=== PATIENT | male | born 1955 | race Caucasian/White ===

== ENCOUNTER 2018-03-13 08:58 | Inpatient (IN) | payer BC ==
[~2018-03-13] VITALS: Ht 167.6 cm; Wt 81.7 kg
[~2018-03-13 08:58] MED LIST: PRED20 PO; Synthroid125 MCG
[2018-03-13] MEDS ORDERED: PRED1 PO (09:20)
[2018-03-13 09:44] LABS: BASOPHILS ABSOLUTE AUTO 0.07 K/mm3 (0.00-0.23); BASOPHILS PERCENT AUTO 0 % (0-2); EOSINOPHILS ABSOLUTE AUTO 0.17 K/mm3 (0.00-0.68); EOSINOPHILS PERCENT AUTO 1 % (0-6); Hematocrit 50.9 % (37.0-53.0); Hemoglobin 16.9 g/dL (13.5-17.5); IMMATURE GRAN ABSOLUTE AUTO 0.07 K/mm3 (0.00-0.10); IMMATURE GRAN PERCENT AUTO 0 % (0-1); LYMPHOCYTES ABSOLUTE AUTO 4.45 K/mm3 (0.84-5.20); LYMPHOCYTES PERCENT AUTO 25 % (21-46); MONOCYTES ABSOLUTE AUTO 1.58 K/mm3 (0.16-1.47); MONOCYTES PERCENT AUTO 9 % (4-13); Mean Corpuscular HGB 29.5 pg (26.0-34.0); Mean Corpuscular HGB Conc 33.2 g/dL (31.5-36.5); Mean Corpuscular Volume 89 fL (80-100); Mean Platelet Volume 10.3 fL (9.1-12.4); NEUTROPHILS ABSOLUTE AUTO 11.33 K/mm3 (1.96-9.15); NEUTROPHILS PERCENT AUTO 64 % (41-73); Platelet Count 280 K/mm3 (150-400); RDW Coefficient Variation 13.3 % (11.7-14.2); RDW Standard Deviation 43.2 fL (35.1-46.3); Red Blood Cell Count 5.72 M/mm3 (4.30-5.90); White Blood Cell Count 17.67 K/mm3 (4.00-11.30)
[2018-03-13 10:06] LABS: Albumin, Blood 4.1 g/dL (3.4-5.0); Albumin/Globulin Ratio 0.9 (0.8-1.8); Bun/Creatinine Ratio 16.4 (12.0-20.0); Calcium, Blood 9.9 mg/dL (8.5-10.1); Creatinine, Blood 1.34 mg/dL (0.60-1.20); Globulin, Blood 4.4 g/dL (2.2-4.0); Total Protein, Blood 8.5 g/dL (6.4-8.2)
[2018-03-13] MEDS ORDERED: LEVSOD125 PO (12:24)
[2018-03-13] MEDS ORDERED: HYDR1TAB94 PO (18:32)
== END 2018-03-13 19:16 | disposition home or self-care (01) | DRG 354 ==
LOC: ER 08:58 → SURS 11:12
PROVIDERS: Emergency Medicine; Surgery
PROC: 0WUF0JZ Supplement Abdominal Wall with Synthetic Substitute, Open Approach (ICD-10-PCS; principal; 2018-03-13 12:45)
DX: K43.9 Ventral hernia without obstruction or gangrene (principal); K56.609 Unspecified intestinal obstruction, unspecified as to partial versus complete obstruction; E03.9 Hypothyroidism, unspecified; Z85.820 Personal history of malignant melanoma of skin; D72.829 Elevated white blood cell count, unspecified
CPT/HCPCS: 36415; 74177; 80053; 83605; 83690; 84484; 85025; 93005; 93010; 96361; 96374; 96375; 96376; 99285; C1781; J0330; J0697; J1720; J2250; J2370; J2405; J2710; J3010; J7030; J7120; Q9967

== ENCOUNTER 2020-06-08 04:51 | Inpatient (IN) | payer BC, MEDICARE ==
[~2020-06-08] VITALS: Ht 170.2 cm; Wt 85.0 kg
[~2020-06-08 04:51] MED LIST changes: +HYDR1TAB94 PO; +LEVSOD125 PO; +PRED1 PO
[2020-06-08 05:27] LABS: BASOPHILS ABSOLUTE AUTO 0.07 K/mm3 (0.00-0.23); BASOPHILS PERCENT AUTO 1 % (0-2); EOSINOPHILS ABSOLUTE AUTO 0.18 K/mm3 (0.00-0.68); EOSINOPHILS PERCENT AUTO 1 % (0-6); Hematocrit 47.8 % (37.0-53.0); Hemoglobin 15.6 g/dL (13.5-17.5); IMMATURE GRAN ABSOLUTE AUTO 0.03 K/mm3 (0.00-0.10); IMMATURE GRAN PERCENT AUTO 0 % (0-1); LYMPHOCYTES ABSOLUTE AUTO 2.67 K/mm3 (0.84-5.20); LYMPHOCYTES PERCENT AUTO 18 % (21-46); MONOCYTES ABSOLUTE AUTO 0.86 K/mm3 (0.16-1.47); MONOCYTES PERCENT AUTO 6 % (4-13); Mean Corpuscular HGB 29.7 pg (26.0-34.0); Mean Corpuscular HGB Conc 32.6 g/dL (31.5-36.5); Mean Corpuscular Volume 91 fL (80-100); Mean Platelet Volume 10.2 fL (9.1-12.4); NEUTROPHILS ABSOLUTE AUTO 11.22 K/mm3 (1.96-9.15); NEUTROPHILS PERCENT AUTO 75 % (41-73); Platelet Count 222 K/mm3 (150-400); RDW Coefficient Variation 13.1 % (11.7-14.2); RDW Standard Deviation 43.6 fL (35.1-46.3); Red Blood Cell Count 5.26 M/mm3 (4.30-5.90); White Blood Cell Count 15.03 K/mm3 (4.00-11.30)
[2020-06-08 05:51] LABS: Alanine Aminotransfer (ALT/SGP 23 U/L (12-78); Albumin, Blood 4.6 g/dL (3.4-5.0); Albumin/Globulin Ratio 1.1 (0.8-1.8); Alk Phos 66 U/L (50-136); Anion Gap 8 mmol/L (6-16); Aspartate Aminotrans (AST/SGOT 19 U/L (12-37); Bilirubin, Total 0.6 mg/dL (0.1-1.0); Blood Urea Nitrogen 21 mg/dL (8-24); Bun/Creatinine Ratio 18.9 (12.0-20.0); CO2, Blood 31 mmol/L (21-32); Calcium, Blood 10.1 mg/dL (8.5-10.1); Chloride, Blood 99 mmol/L (98-108); Creatinine, Blood 1.11 mg/dL (0.60-1.20); Globulin, Blood 4.2 g/dL (2.2-4.0); Glomerular Filtration Rate >60 (60-); Glucose, Blood 165 mg/dL (70-99); Potassium, Blood 3.6 mmol/L (3.5-5.5); Sodium, Blood 138 mmol/L (136-145); Total Protein, Blood 8.8 g/dL (6.4-8.2)
--- NOTE | 2020-06-08 06:52 | NUR ---
PT TO ROOM 211 AT THIS TIME. AT BEDSIDE. CALL LIGHT IN REACH. ORIENTED TO ROOM.
[2020-06-08] MEDS ORDERED: LEVSOD25 PO (07:37)
--- NOTE | 2020-06-08 17:51 | NUR ---
SHIFT SUMMARY PT HAS BEEN DROWSY TODAY. NOT INTERESTED IN CLEAR LQS ONLY TAKING IN WATER. ABD UNCHANGED SINCE ADMISSION. IVF INFUSING. AT BEDSIDE, ATTENTIVE. PLAN FOR NPO AFTER MIDNIGHT AND OR TOMORROW.
--- NOTE | 2020-06-09 03:29 | NUR ---
SHIFT SUMMARY LYING IN LOW FOWLERS WITH EYES CLOSED WHILE TV IS ON IN ROOM. HAS RESTED WELL THIS SHIFT. HAS BEEN NPO PAST [place] FOR SX THIS AM. DENIES FURTHER NEEDS OR WANTS AT THIS TIME. SAFETY MEASURES IN PLACE. WILL CONTINUE TO MONITOR AMD GIVE HAND OFF TO ONCOMING SHIFT USING SBAR.
--- NOTE | 2020-06-09 09:00 | NUR ---
PT TO DAY SURGERY VIA SHANNA
--- NOTE | 2020-06-09 09:43 | NUR ---
INTO SDS VIA GURNEY FROM SURG FLOOR ROOM. History, Chart, Medications and Allergies reviewed before start of procedure.Patient confirms NPO status and agrees with scheduled surgery. Surgical site prepped with 2% Chlorhexidine cloth wipe. Lungs clear T/O to Auscultation.
--- NOTE | 2020-06-09 14:56 | NUR ---
Pt. is not in the room , the spouse reports that he has gone for surgery, promised to see him after surgery.
--- NOTE | 2020-06-10 06:12 | NUR ---
SHIFT SUMMARY POD0 VENTRAL HERNIA REPAIR, A/O X4, VSS, NPO DURING NOC SHIFT PER DR ORDERS, TOLERATES ICE CHIPS AND SMALL SIPS FOR TAKING ORAL MEDS, VOIDING WELL, DENIES N&T, DENIES N&V, DENIES SOB. PT RETURNED FROM PACU AT 1910 ON 4L O2, WEANED DOWN TO ROOM AIR WHILE MAINTAINING O2 SATURATION OVER 92, PAIN MANAGED PER EMAR, ORIENTED TO ROOM, CALL LIGHT IN REACH. WILL CONTINUE TO MONITOR AND REPORT TO ONCOMING DAY RN.
--- NOTE | 2020-06-10 10:45 | NUR ---
Met pt. lying in bed after his sugery ,he reports doing fine besides the minor pains encouraged pt. and offered prayers and spiritual support
--- NOTE | 2020-06-10 17:08 | NUR ---
SHIFT SUMMARY PT HAS DONE WELL TODAY. AMUBULATED IN HALLWAYS W/ ASSISTANCE. PASSING GAS. TOLERATING CLEAR LQS. VOIDING WELL. PT STATES NORCO GIVES HIM HEARTBURN. DECLIENS PO MEDS; REQUESTS IV.
--- NOTE | 2020-06-11 04:11 | NUR ---
SHIFT SUMMARY PT HAS BEEN A/O X4. SBA WHEN AMBULATING FOR CORDS/LINES. PT USING URINAL IND. USING CALL LIGHT APPROPRIATELY. PT HAS BEEN ABLE TO REST MOST OF THE NIGHT. MED WITH IV DILAUDED 0.5 MG PRN PER ORDERS. TOLERATING CLEAR LIQUID DIET W/O NAUSEA OR EMESIS. PT REPORTS PASSING FLATUS BUT NO BM YET. NO NEW CHANGES.
[2020-06-11] MEDS ORDERED: PRED1 PO (08:00)
[2020-06-11] MEDS ORDERED: HYDR1TAB94 PO (17:18)
--- NOTE | 2020-06-11 19:45 | NUR ---
DISCHARGE SUMMARY PT A&OX4, VSS, LEFT FLOOR VIA WC WITH STRUCTURAL ANALYST WITH ALL PERSONAL POSSESSIONS, TO GO HOME WITH . PT WAS [place] PO REG DIET, VOIDING WELL, AMBULATING SHORT FREQU WALKS, REP PASSING FLATUS. DC INSTRUCTIONS PROVIDED; PT REP UNDERSTANDING THOSE INSTRUCTIONS INCLUDING LEAVE STERIS IN PLACE UNTIL FU WITH SURGEON, PREVENTING CONSTIPATION, SHORT FREQUENT WALKS, PAIN MANAGEMENT. 2 IV'S DC'D.
== END 2020-06-11 17:30 | disposition home or self-care (01) | DRG 336 ==
LOC: ER 04:51 → SURS 04:52
PROVIDERS: Emergency Medicine; Surgery; ADMIT Surgery
PROC: 0DN80ZZ Release Small Intestine, Open Approach (ICD-10-PCS; 2020-06-09)
PROC: 8E0W0CZ Robotic Assisted Procedure of Trunk Region, Open Approach (ICD-10-PCS; 2020-06-09)
PROC: 0WUF0JZ Supplement Abdominal Wall with Synthetic Substitute, Open Approach (ICD-10-PCS; principal; 2020-06-09 09:45)
DX: K43.6 Other and unspecified ventral hernia with obstruction, without gangrene (principal); R18.8 Other ascites; E03.9 Hypothyroidism, unspecified
CPT/HCPCS: 36415; 74018; 74176; 80053; 85025; 88300; 96374; 96375; 96376; 99284-25; A9270-GY; C1781; G0378; J0694; J1100; J1170; J1650; J2310; J2370; J2405; J2704; J3010; J7030; J7120; U0002

== ENCOUNTER 2024-10-16 09:57 | Inpatient (IN) | payer BC, MEDICARE ==
[~2024-10-16] VITALS: Ht 165.1 cm; Wt 82.0 kg
[2024-10-16] VITALS (23 sets, daily range): BP systolic 89–109; BP diastolic 62–75
[~2024-10-16 09:57] MED LIST changes: +LEVSOD25 PO
[2024-10-16] MEDS ORDERED: NS 1,000 ML IV SCH (10:30)
[2024-10-16 10:45] LABS: Chloride (POC) 99 mmol/L (98-108); Creatinine (POC) 1.3 mg/dL (0.8-1.3); Glucose (ISTAT POC) 101 mg/dL (70-99); Potassium (POC) 4.5 mmol/L (3.5-5.5); Sodium (POC) 130 mmol/L (135-148); Total CO2 (POC) 20 mmol/L (21-32)
[2024-10-16] MEDS ORDERED: Magnesium Sulf 2 GM/Water 50ML 50 ML IV ONE (10:45)
[2024-10-16] MEDS ORDERED: CALCIUM GLUC IN NACL, ISO-OSM 100 ML IV ONE (10:55)
[2024-10-16 11:12] LABS: BASOPHILS PERCENT AUTO 1 % (0-2); EOSINOPHILS ABSOLUTE AUTO 0.07 K/mm3 (0.00-0.68); EOSINOPHILS PERCENT AUTO 1 % (0-6); Hematocrit 45.1 % (37.0-53.0); IMMATURE GRAN ABSOLUTE AUTO 0.04 K/mm3 (0.00-0.10); IMMATURE GRAN PERCENT AUTO 0 % (0-1); LYMPHOCYTES ABSOLUTE AUTO 2.74 K/mm3 (0.84-5.20); LYMPHOCYTES PERCENT AUTO 24 % (21-46); MONOCYTES PERCENT AUTO 7 % (4-13); Mean Corpuscular HGB 29.6 pg (26.0-34.0); Mean Corpuscular HGB Conc 33.3 g/dL (31.5-36.5); Mean Corpuscular Volume 89 fL (80-100); Mean Platelet Volume 10.1 fL (9.1-12.4); NEUTROPHILS ABSOLUTE AUTO 7.71 K/mm3 (1.96-9.15); NEUTROPHILS PERCENT AUTO 67 % (41-73); Platelet Count 196 K/mm3 (150-400); RDW Coefficient Variation 13.2 % (11.7-14.2); RDW Standard Deviation 43.5 fL (35.1-46.3); Red Blood Cell Count 5.07 M/mm3 (4.30-5.90); White Blood Cell Count 11.46 K/mm3 (4.00-11.30)
[2024-10-16 11:18] LABS: Albumin, Blood 3.5 g/dL (3.4-5.0); Albumin/Globulin Ratio 0.8 (0.8-1.8); Bilirubin, Total 0.6 mg/dL (0.1-1.0); Bun/Creatinine Ratio 14.3 (12.0-20.0); Creatinine, Blood 1.19 mg/dL (0.60-1.20); Globulin, Blood 4.2 g/dL (2.2-4.0); Magnesium, Blood 2.2 mg/dL (1.6-2.4); Potassium, Blood 4.6 mmol/L (3.5-5.5); Total Protein, Blood 7.7 g/dL (6.4-8.2)
[2024-10-16] MEDS ORDERED: Ketorolac Tromethamine 30mg Vial IV ONE (11:20)
[2024-10-16] MEDS ORDERED: Lactated Ringer's 1,000 ML IV ONE (11:20)
[2024-10-16 11:42] LABS: Influenza A, PCR NEGATIVE (NEGATIVE); Influenza B, PCR NEGATIVE (NEGATIVE); Resp Syncytial Virus, PCR NEGATIVE (NEGATIVE); SARS-Cov-2 (COVID-19) PCR, MMC NEGATIVE (NEGATIVE)
[2024-10-16] MEDS ORDERED: Diltiazem HCl 5 MG / ML 5ML Vial IV ONE (11:50)
[2024-10-16] MEDS ORDERED: Azithromycin 500 MG in NS 250 ML IV ONE (11:55)
[2024-10-16] MEDS ORDERED: CefTRIAXone Sodium 1,000 MG in NS 50 ML IV ONE (11:55)
[2024-10-16] MEDS ORDERED: Ipratropium/Albuterol SulF 2.5-0.5MG/3 ML Amp INH SCH (13:05)
[2024-10-16] MEDS ORDERED: FLU VACC TS2024-25(6MOS UP)/PF 45 MCG/0.5 ML SYRINGE IM SCH (14:10)
[2024-10-16] MEDS ORDERED: Prochlorperazine Edisylate 10 mg Vial IV PRN (14:10)
[2024-10-16] MEDS ORDERED: Zolpidem Tartrate 10 MG Tab PO PRN (14:10)
[2024-10-16] MEDS ORDERED: Hydrocortisone Sod Succinate 100 MG Vial IV SCH (15:00)
[2024-10-16] MEDS ORDERED: NS 250 ML IV PRN (15:45)
--- NOTE | 2024-10-16 17:20 | NUR ---
ARRIVAL TO PCU 17 / SHIFT SUMMARY PT ARRIVED TO PCU 17 AT APPROXIMATELY 1600, TRANSFERED FROM ER [facility] TO HOSPITAL BED WITH 1 ASSIST. PT ARRIVED WITH INCONTINENT BM, TURNER CARE PROVIDED. PT A&Ox4, CALLS AND COMMUNICATES NEEDS APPROPRIATELY. VERY SLEEPY AND REPORTS ITS SECONDARY TO NOT BEING ABLE TO SLEEP VERY WELL THE LAST FEW DAYS. SpO2> 92% RA WHILE AWAKE, DOWN TO 89% WHILE SLEEPING - PLACED ON 2L VIA NC TO KEEP SpO2> 92%, DENIES SOB. AFLUTTER 110's, PT ARRIVED WITH DILT gtt INFUSING AT 5mg/hr. THIS RN KEPT DILT gtt AT 5mg/hr INFUSING WITH KVO. BP SOFT WITH SBP 90's, MAP> 65, ASYMTOMATIC, DENIES CP/PRESSURE. ORIENTED TO CALL LIGHT/UNIT, AT BEDSIDE. WILL REPORT TO ONCOMING RN.
[2024-10-17] VITALS (40 sets, daily range): BP systolic 87–122; BP diastolic 58–88
--- NOTE | 2024-10-17 00:53 | NUR ---
SHIFT SUMMARY NEURO:WNL LUNGS: ON 2LNC CARDIAC: AFLUTTER 2:1, CARDIZEM TITRATED NEEDED
[2024-10-17 04:17] LABS: BASOPHILS ABSOLUTE AUTO 0.03 K/mm3 (0.00-0.23); BASOPHILS PERCENT AUTO 0 % (0-2); EOSINOPHILS PERCENT AUTO 0 % (0-6); Hemoglobin 12.9 g/dL (13.5-17.5); IMMATURE GRAN ABSOLUTE AUTO 0.03 K/mm3 (0.00-0.10); IMMATURE GRAN PERCENT AUTO 0 % (0-1); LYMPHOCYTES ABSOLUTE AUTO 0.77 K/mm3 (0.84-5.20); LYMPHOCYTES PERCENT AUTO 8 % (21-46); MONOCYTES PERCENT AUTO 2 % (4-13); Mean Corpuscular HGB 29.3 pg (26.0-34.0); Mean Corpuscular HGB Conc 33.1 g/dL (31.5-36.5); Mean Corpuscular Volume 89 fL (80-100); Mean Platelet Volume 10.1 fL (9.1-12.4); NEUTROPHILS ABSOLUTE AUTO 8.74 K/mm3 (1.96-9.15); NEUTROPHILS PERCENT AUTO 90 % (41-73); Platelet Count 170 K/mm3 (150-400); RDW Coefficient Variation 13.2 % (11.7-14.2); RDW Standard Deviation 43.5 fL (35.1-46.3); White Blood Cell Count 9.77 K/mm3 (4.00-11.30)
[2024-10-17 04:59] LABS: Bun/Creatinine Ratio 16.3 (12.0-20.0); Calcium, Blood 8.2 mg/dL (8.5-10.1); Creatinine, Blood 0.98 mg/dL (0.60-1.20); Potassium, Blood 4.8 mmol/L (3.5-5.5)
[2024-10-17] MEDS ORDERED: Levothyroxine Sodium 0.05 MG Tab PO SCH (06:00)
[2024-10-17] MEDS ORDERED: Metoprolol Tartrate 25 MG Tab PO SCH (09:00)
[2024-10-17] MEDS ORDERED: Enoxaparin 40 MG/0.4 ML SYR SC SCH (09:00)
--- NOTE | 2024-10-17 09:46 | NUR ---
am note this rn assumed care at 0700. vital signs stable. aflutter 120s on cardizem at 10mg/hr. patient is alert and oriented x4. neuro is intact. patient is able to make needs known and uses call light appropriately. denies pain, chest pain/pressure or shortness of breath. see shift assessment for further detials. md brito in to see patient and ordered oral metoprolol for patient. plan to hopefully titrate off of drip.
[2024-10-17] MEDS ORDERED: Azithromycin 250 MG in NS 250 ML IV SCH (12:00)
[2024-10-17] MEDS ORDERED: CefTRIAXone Sodium 2,000 MG in NS 100 ML IV SCH (12:00)
[2024-10-17] MEDS ORDERED: NS 500 ML IV ONE (13:00)
[2024-10-17] MEDS ORDERED: Midodrine 5 MG Tab PO ONE (13:00)
--- NOTE | 2024-10-17 13:14 | NUR ---
UPDATE patient heart rate increase to 130s and patient blood pressure systolic in the 80s. this rn called md brito and orders place for 500mls bolus and 10mg of oral midodrine.
[2024-10-17] MEDS ORDERED: Sodium Bicarbonate 650 MG Tab PO SCH (16:00)
--- NOTE | 2024-10-17 17:09 | NUR ---
shift summary patient neuro remains inact. vitals stable. tele aflutter 110s-120s. blood pressure is stable. see previous notes. no acute changes.
[2024-10-17] MEDS ORDERED: Melatonin 5 MG Tablet PO PRN (20:15)
--- NOTE | 2024-10-17 23:08 | NUR ---
UPDATE CALL PLACED TO HOSPITALIST REGARDING PATIENT'S HR. CARDIZEM GTT INFUSING, HR 120-130s, BP SOFT WITH SYSTOLIC 90s AT TIMES. PER HOSPITALIST, CONTINUE CARDIZEM. ORDER RECEIVED FOR OT DOSE OF DIGOXIN.
[2024-10-17] MEDS ORDERED: Digoxin 0.25 MG/ML 2ML Amp IV ONE (23:10)
[2024-10-18] VITALS (8 sets, daily range): BP systolic 94–127; BP diastolic 63–74
[2024-10-18 05:26] LABS: Bun/Creatinine Ratio 15.4 (12.0-20.0); Calcium, Blood 8.2 mg/dL (8.5-10.1); Creatinine, Blood 0.97 mg/dL (0.60-1.20); Potassium, Blood 4.5 mmol/L (3.5-5.5)
--- NOTE | 2024-10-18 06:11 | NUR ---
SHIFT SUMMARY PATIENT ALERT, ORIENTED x4, USES CALL LIGHT APPROPRIATELY. ON TELE, AFLUTTER 120s-130s DURING THE NIGHT, OCCASIONALLY 100-110s BUT ONLY WHEN PATIENT SLEEPING. PATIENT RECIEVED DOSE OF DIGOXIN THIS SHIFT WITH NO SIGNICANT CHANGE IN HR. CARDIZEM GTT CONTINUES TO INFUSE. BP OCCASIONALLY SOFT THIS SHIFT. PATIENT ON RA WITH SPO2 >90%. PATIENT USING URINAL INDEPENDENTLY, ADEQUATE OUTPUT. TURNING SELF IN BED. NO OTHER CHANGES THIS SHIFT, WILL REPORT TO DAY SHIFT RN.
[2024-10-18] MEDS ORDERED: Ipratropium/Albuterol SulF 2.5-0.5MG/3 ML Amp INH PRN (07:30)
[2024-10-18] MEDS ORDERED: Metoprolol Tartrate 50 MG Tab PO SCH (09:00)
[2024-10-18] MEDS ORDERED: PredniSONE 1 MG Tab PO SCH (09:00)
[2024-10-18] MEDS ORDERED: Azithromycin 250 MG Tab PO SCH (09:00)
[2024-10-18] MEDS ORDERED: Pantoprazole Sodium 20 MG Tab PO SCH (09:00)
--- NOTE | 2024-10-18 09:54 | NUR ---
am note this rn assumed care at 0700. vital signs stable. tele aflutter 110s when assuming care and on cardizem drip. patient is now aflutter 70s-80s, cardizem is off. spo2 >90%on room air, patient is alert and oriented x4. neuro is intact. patient is able to make needs known and uses call light appropriately. denies pain, chest pain/pressure or shortness of breath. see shift assessment for further detials. md brito in to see patient and discussed rate control and plan to get off drip today and stay off. this rn called echo reading room to inform of rate in 70-80s.
[2024-10-18] MEDS ORDERED: Loratadine 10 MG Tab PO SCH (10:00)
[2024-10-18] MEDS ORDERED: Diltiazem HCl 5 MG / ML 5ML Vial IV ONE (11:30)
[2024-10-18] MEDS ORDERED: Metoprolol Tartrate 1 MG/ML 5 ML VIAL IV ONE (13:00)
[2024-10-18] MEDS ORDERED: Metoprolol Tartrate 1 MG/ML 5 ML VIAL IV PRN (13:00)
--- NOTE | 2024-10-18 15:18 | NUR ---
update patient converted from afib to sinus rhythym 66. this rn called md brito notified him.
--- NOTE | 2024-10-18 17:25 | NUR ---
shift summary neuro remains intact. vitals remain stable. tele sinus rhythm 90s. see previous notes. no acute changes this shift. plan remains up to date
[2024-10-19 04:29] VITALS: BP 117/65
--- NOTE | 2024-10-19 06:13 | NUR ---
SHIFT SUMMARY PATIENT ALERT, ORIENTED x4. ABLE TO MAKE NEEDS KNOWN TO STAFF. PATIENT REPORTED INCREASED AMOUNT OF SLEEP THIS SHIFT. PATIENT ON RA, SPO2 >90%. CONTINUES TO BE IN SINUS RHYTHM OVER NIGHT, HR 70-80s. PATIENT TURNING SELF IN BED. USING URINAL INDEPENDENTLY, ADEQUATE OUTPUT. NO OTHER CHANGES DURING THE NIGHT. WILL REPORT TO DAY SHIFT RN.
[2024-10-19 08:06] VITALS: BP 124/70
[2024-10-19] MEDS ORDERED: LORA10ER PO (09:09)
[2024-10-19] MEDS ORDERED: OMEP20ER PO (09:11)
[2024-10-19] MEDS ORDERED: DOXY100 PO (09:17)
[2024-10-19] MEDS ORDERED: VISBIOME 112.51 EACH PO (09:17)
[2024-10-19] MEDS ORDERED: METO50 PO (09:28)
--- NOTE | 2024-10-19 09:50 | NUR ---
discharge education this rn assumed care at 0700. vital signs stable. tele sinus rhythm. patient is alert and oriented x4. neuro is intact. patient is able to make needs known and uses call light appropriately. denies pain, chest pain/pressure or shortness of breath. see shift assessment for further detials. md brito in room around 0800 discussed plan to go home. patient agrees. this rn went over discharge education and follow up appointments. patient medications faxed to [facility]. this rn went over new medications, metoprolol for rate control, vibramycin for infection, probiotic to go with antibiotic, clartin for sinus infection, and priolosec to take before breakfast for prevention of ulcers due to emt intermediate steriod use. patient verbalized understanding. patient left with all belongings and in no distress.
== END 2024-10-19 09:38 | disposition home or self-care (01) | DRG 871 ==
LOC: ER 09:57 → PCU 14:06
PROVIDERS: Internal Medicine; Student in an Organized Health Care Education/Training Program; ADMIT Internal Medicine
DX: A41.9 Sepsis, unspecified organism (principal); J18.9 Pneumonia, unspecified organism; I48.92 Unspecified atrial flutter; E87.1 Hypo-osmolality and hyponatremia; E87.20 Acidosis, unspecified; I48.91 Unspecified atrial fibrillation; E03.9 Hypothyroidism, unspecified; J32.9 Chronic sinusitis, unspecified; Z85.820 Personal history of malignant melanoma of skin; Z98.890 Other specified postprocedural states; Z79.890 Hormone replacement therapy; Z79.891 Long term (current) use of opiate analgesic; Z79.899 Other long term (current) drug therapy; Z87.891 Personal history of nicotine dependence; Z88.0 Allergy status to penicillin
CPT/HCPCS: 0241U; 36415; 71045; 80047; 80048; 80053; 83605; 83735; 84145; 84439; 84443; 85014; 85025; 87040; 93005; 93010; 93306; 94640; 94664; 94760; 94762; 96365; 96367; 96368; 96375; 96376; 99285-25; A9270; J0456; J0612; J0696; J0780; J1160; J1650; J1720; J1885; J2470; J3475; J7030; J7040; J7050; J7120; J7512